=== PATIENT | male | born 2000 | race African-American/Black ===

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

== ENCOUNTER 2022-10-22 15:06 | Emergency (ER) | payer SELFPAY ==
[~2022-10-22] VITALS: Ht 177.8 cm; Wt 79.0 kg
[2022-10-22] VITALS (7 sets, daily range): BP systolic 113–135; BP diastolic 71–97
[2022-10-22] MEDS ORDERED: AMOX/K CLAV875 M1 PO (17:53)
[2022-10-22] MEDS ORDERED: DECADRON4 MG PO (17:55)
== END 2022-10-22 18:00 | disposition home or self-care (01) | DRG 153 ==
LOC: ED 15:06
DX: J02.9 Acute pharyngitis, unspecified (principal); Z20.822 Contact with and (suspected) exposure to COVID-19